=== PATIENT | male | born 2005 | race Caucasian/White ===

== ENCOUNTER 2024-03-09 00:39 | Emergency (ER) | payer SELFPAY ==
[2024-03-09] MEDS ORDERED: Lorazepam 1 MG TAB ONE (00:58)
[2024-03-09 01:29] LABS: #Basophils 0.07 10x3/uL (0.0-0.2); #Eosinophils 0.08 10x3/uL (0.0-0.5); #Monocytes 1.19 10x3/uL (0.0-1.1); #Neutrophils 13.74 10x3/uL (1.5-8.4); %Basophils 0.4 % (0.0-2.0); %Eosinophils 0.4 % (0.0-6.0); %Lymphocytes 19.1 % (18.0-47.0); %Monocytes 6.3 % (0.0-10.0); %Neutrophils 73.1 % (40.0-75.0); Hematocrit 47.4 % (38.8-50.0); Mean Corpuscular HGB CONC 35.9 g/dL (32.0-36.0); Mean Corpuscular Hemoglobin 30.2 pg (27.0-33.0); Mean Corpuscular Volume 84.3 fL (81.2-95.1); Platelet Count 381 10x3/uL (150-450); RBC Distribution Width 13.2 % (11.5-14.5); Red Blood Cell (RBC) Count 5.62 10x6/uL (4.32-5.72); White Blood Cell (WBC) Count 18.8 10x3/uL (3.5-10.5)
[2024-03-09 01:34] LABS: ALT (SGPT) 15 U/L (8-55); AST (SGOT) 17 U/L (10-45); Albumin 4.1 g/dL (3.5-5.0); Alkaline Phosphatase 77 U/L (50-130); Anion Gap 15 mmol/L (10-20); BUN (Urea Nitrogen) 7 mg/dL (8.4-21.0); Bilirubin, Total 1.3 mg/dL (0.2-1.2); Calc. Creatinine Clearance 0 mL/min (70-130); Calcium 9.5 mg/dL (7.8-10.44); Carbon Dioxide 20 mmol/L (22-29); Chloride 106 mmol/L (98-107); Estimated GFR 113; Globulin 2.2 g/dL (2.4-3.5); Glucose 94 mg/dL (70-105); Lipase 28 U/L (8-78); Potassium 3.1 mmol/L (3.5-5.1); Protein, Total 6.3 g/dL (6.0-8.3); Sodium 138 mmol/L (136-145)
[2024-03-09 01:40] LABS: Troponin I Less than 0.010 ng/mL (< 0.028)
[2024-03-09] MEDS ORDERED: Acetaminophen 500 MG TAB ONE (02:02)
== END 2024-03-09 02:20 | disposition home or self-care (01) ==
LOC: CSHERS 00:39
DX: R07.9 Chest pain, unspecified (principal); F17.290 Nicotine dependence, other tobacco product, uncomplicated
CPT/HCPCS: 36415; 71045; 80053; 83690; 84484; 85025; 85379; 93005

== ENCOUNTER 2024-03-09 09:55 | Emergency (ER) | payer SELFPAY ==
[2024-03-09] MEDS ORDERED: Morphine 4 MG/ML VIAL ONE (10:28)
[2024-03-09 10:38] LABS: #Basophils 0.05 10x3/uL (0.0-0.2); #Eosinophils 0.25 10x3/uL (0.0-0.5); #Monocytes 0.96 10x3/uL (0.0-1.1); #Neutrophils 10.48 10x3/uL (1.5-8.4); %Basophils 0.3 % (0.0-2.0); %Eosinophils 1.7 % (0.0-6.0); %Lymphocytes 17.2 % (18.0-47.0); %Monocytes 6.7 % (0.0-10.0); %Neutrophils 73.5 % (40.0-75.0); Hematocrit 48.6 % (38.8-50.0); Hemoglobin 16.4 g/dL (13.5-17.5); Mean Corpuscular HGB CONC 33.7 g/dL (32.0-36.0); Mean Corpuscular Hemoglobin 29.4 pg (27.0-33.0); Mean Corpuscular Volume 87.1 fL (81.2-95.1); Platelet Count 346 10x3/uL (150-450); Red Blood Cell (RBC) Count 5.58 10x6/uL (4.32-5.72); White Blood Cell (WBC) Count 14.3 10x3/uL (3.5-10.5)
[2024-03-09 10:48] LABS: INR-International Normal Ratio 1.1; Prothrombin Time 11.8 sec (9.5-12.1)
[2024-03-09 10:51] LABS: ALT (SGPT) 12 U/L (8-55); AST (SGOT) 16 U/L (10-45); Alkaline Phosphatase 74 U/L (50-130); Anion Gap 14 mmol/L (10-20); BUN (Urea Nitrogen) 7 mg/dL (8.4-21.0); Bilirubin, Total 1.8 mg/dL (0.2-1.2); Calc. Creatinine Clearance 0 mL/min (70-130); Calcium 9.1 mg/dL (7.8-10.44); Carbon Dioxide 25 mmol/L (22-29); Chloride 104 mmol/L (98-107); Estimated GFR 120; Globulin 2.6 g/dL (2.4-3.5); Glucose 86 mg/dL (70-105); Potassium 3.6 mmol/L (3.5-5.1); Protein, Total 6.6 g/dL (6.0-8.3); Sodium 139 mmol/L (136-145)
[2024-03-09 10:57] LABS: Troponin I Less than 0.010 ng/mL (< 0.028)
[2024-03-09] MEDS ORDERED: Iopamidol 370 76% 100 ML VIAL ONE (13:04)
== END 2024-03-09 15:35 | disposition short-term general hospital (02) ==
LOC: CSHERS 09:55
DX: J98.2 Interstitial emphysema (principal); F17.290 Nicotine dependence, other tobacco product, uncomplicated
CPT/HCPCS: 70491; 71260; 83605; 85610; 85730; 93005; 96374; J2272; Q9967